=== PATIENT | male | born 1930 | race Caucasian/White ===

== ENCOUNTER 2021-06-29 10:05 | Emergency (ER) | payer OTHER, MEDICARE ==
[~2021-06-29] VITALS: Ht 182.9 cm; Wt 104.3 kg
[2021-06-29] MEDS ORDERED: METROGEL-VAGINA70 GM TRANSDERM (10:21)
[2021-06-29] MEDS ORDERED: LEVO-T100 MCG PO (10:21)
[2021-06-29] MEDS ORDERED: COZAAR 25 MG TA25 M1 PO (10:21)
[2021-06-29] MEDS ORDERED: ZOCOR 20 MG TAB20 M1 PO (10:21)
[2021-06-29] MEDS ORDERED: FLOMAX0.4 MG PO (10:22)
[2021-06-29] MEDS ORDERED: LATANOPROST 0.2.5 ML INTRAOCULR (10:25)
[2021-06-29 10:38] LABS: ABSOLUTE NEUTROPHILS 5.2 thou/uL (1.4-8.2); BASOPHILS 0.4 % (0.0-2.0); EOSINOPHILS 3.7 % (0.0-3.0); HEMATOCRIT 49.4 % (42.0-52.0); HEMOGLOBIN 16.7 gm/dL (14.0-18.0); LYMPHOCYTES 27.2 % (24.0-44.0); MCH 30.9 pg (26.0-34.0); MCHC 33.8 g/dL (28.0-37.0); MCV 91.4 fL (80.0-100.0); MONOCYTES 7.1 % (1.0-8.0); PLATELET COUNT 171 thou/uL (150-400); POLYS 61.6 % (36.0-66.0); RBC 5.41 mil/uL (4.50-6.00); RDW 13.7 % (10.5-14.5); WBC 8.5 thou/uL (4.0-11.0)
--- NOTE | 2021-06-29 10:39 | EKG ---
[address] [place] [address] ELECTROCARDIOGRAM REPORT Name: NOA CHEW Room #: [facility].#: [id number] Admission: Attend Phys: Discharge: Date of : [birth year] Report #: [id number] [facility] ED Test Date: 2021-06-29 Test Time: 10:20:32 Pat Name: NOA CHEW Department: Room: Gender: Cook [employer]: : 1930 Requested By: Wagner Berman Order Number: [id number] MD: Nikolai Vang Measurements Intervals [place] Rate: 81 P: -17 [place]: 166 QRS: -29 QRSD: 96 T: 28 QT: 392 QTc: 455 Interpretive Statements Sinus rhythm Atrial premature complex Inferior infarct, old No previous ECG available for comparison Electronically Signed On 06-29-2021 10:39:14 [employer] TECHNICIAN by Nikolai Vang [email or web address] <ELECTRONICALLY SIGNED> By: Nikolai Vang MD, [facility] 06/29/21 1039 1020 1020 Nikolai Vang MD, FACC /EPI
[2021-06-29 10:44] LABS: CALCIUM 9.3 mg/dL (8.5-10.1); CREATININE 1.1 mg/dL (0.7-1.3); POTASSIUM 4.3 mmol/L (3.5-5.1)
[2021-06-29 10:54] LABS: ALBUMIN 3.8 g/dL (3.4-5.0); TOTAL BILIRUBIN 1.4 mg/dL (0.2-1.0); TOTAL PROTEIN 6.9 g/dL (6.4-8.2)
[2021-06-29 12:11] VITALS: BP 150/90
== END 2021-06-29 12:26 | disposition home or self-care (01) ==
LOC: ER 10:05
PROVIDERS: Emergency Medicine
DX: S01.01XA Laceration without foreign body of scalp, initial encounter (principal); G62.9 Polyneuropathy, unspecified; Z79.1 Long term (current) use of non-steroidal anti-inflammatories (NSAID); Z79.899 Other long term (current) drug therapy; Z88.0 Allergy status to penicillin; Z88.2 Allergy status to sulfonamides; W18.39XA Other fall on same level, initial encounter; Y93.89 Activity, other specified; Y92.89 Other specified places as the place of occurrence of the external cause; Y99.8 Other external cause status